=== PATIENT | female | born 1975 | race Caucasian/White ===

== ENCOUNTER 2016-09-03 08:51 | Emergency (ER) | payer MEDICAID ==
[~2016-09-03] VITALS: Ht 152.4 cm; Wt 78.0 kg
[2016-09-03 08:53] VITALS: Ht 152.4 cm; Wt 78.0 kg
[2016-09-03] MEDS ORDERED: TETRACAINE 0.5% 4 ML OPH LEFT EYE SCH (10:00)
[2016-09-03] MEDS ORDERED: FLUORESCEIN STRIP LEFT EYE ONE (10:00)
[2016-09-03] MEDS ORDERED: ACYCLOVIR 800 MG TAB PO ONE (11:30)
[2016-09-03 11:55] VITALS: BP 136/78; PULSE 70; RESP 18; TEMP 98.3
[2016-09-03] MEDS ORDERED: HYDR-906 PO (12:36)
[2016-09-03] MEDS ORDERED: ACYC800T57 PO (12:36)
--- NOTE | 2016-09-03 16:02 | ERD ---
ER Documentation Chief Complaint Date/Time DATE: 09/03/16 TIME: 15:56 Chief Complaint left eyebrow blister pain HPI 41-year-old female patient with no significant past medical history presents to the ED complaining of a rash noted on her left eyebrow region started 4 days ago. Reports that she has pain surrounding the left eye but denies any diplopia , blurred vision, vision loss. Denies any eye pain. Reports that it feels like a burning sensation. States that she wears glasses but denies wearing any contacts. Denies any headache, weakness, numbness or tingling, nausea, vomiting , fever, chills, chest pain, shortness of breath. No foreign body. No eye trauma. ROS All systems reviewed and are negative except as per history of present illness. Medications Home Meds Active Scripts Acyclovir* (Zovirax*) 800 Mg Tablet, 800 MG PO 5 TIMES DAILY for 7 Days, TAB Prov:ROSEANNE ALTAMIRANO PA-C 09/03/16 Hydrocodone/Acetaminophen (Mohnton 5-325 Tablet) 1 Each Tablet, 1 TAB PO Q6H Y for PAIN, #14 TAB Prov:ROSEANNE ALTAMIRANO PA-C 09/03/16 Allergies Allergies: Coded Allergies: No Known Allergy (Verified , 03/18/08) PMhx/Soc History of Surgery: Yes (Cholecystectomy) Anesthesia Reaction: No Hx Neurological Disorder: No Hx Respiratory Disorders: No Hx Cardiac Disorders: No Hx Psychiatric Problems: No Hx Miscellaneous Medical Probl: No Hx Alcohol Use: No Hx Substance Use: No Hx Tobacco Use: No Smoking Status: Never smoker Physical Exam Vitals Vital Signs Date Time Temp Pulse Resp B/P Pulse Ox O2 Delivery O2 Flow Rate FiO2 09/03/16 11:55 98.3 70 18 136/78 99 Room Air 09/03/16 08:53 98.1 80 20 140/75 99 Physical Exam Const: [id number], well-nourished. In no acute distress. Head: Atraumatic, normocephalic Eyes: Normal Conjunctiva without injection. No purulent discharge. PERRLA. EOMI. See MDM for more eye exam. ENT: Normal external ear. Ear canal without erythema. Tympanic membrane pearly chaudhry without effusion or bulging. Nasal canal clear with normal turbinates. Moist oropharynx without tonsillar exudates. Non-erythematous pharynx. Uvula midline. No drooling. No trismus. Neck: No cervical midline tenderness. Full range of motion. No meningismus. No cervical lymphadenopathy. No JVD. Resp: Clear to auscultation bilaterally. No wheezing, rhonchi, rales, or crackles. No accessory muscle use. No retractions. Cardio: Regular rate and rhythm. No murmurs, rubs or gallops. Skin: Normal skin turgor. No petechiae or purpura. Grouped vesicular lesions noted on the lateral aspect of patient's left eyebrow with slight surrounding erythema. No fluctuance or induration. No bleeding noted. Ext: No cyanosis, or edema. Distal pulses intact bilaterally. Neur: Awake and alert. Normal gait. Normal coordination. Cranial Nerves II- VII intact. Normal finger to nose. Muscle strength 5/5. Sensation intact. Psych: Normal Mood and Affect Results 24 hrs Current Medications Medications (Trade) Dose Ordered Sig/Tyler Route PRN Reason Start Time Stop Time Status Last Admin Dose Admin Tetracaine HCl (Tetracaine 0.5% Steri-Unit Araseli) 1 drop ONCE LEFT EYE 09/03/16 10:00 09/03/16 13:21 DC Fluorescein Sodium (Ugmia-D-Lxvkl) 1 strip ONCE ONCE LEFT EYE 09/03/16 10:00 09/03/16 10:01 DC Acyclovir (Zovirax) 800 mg ONCE ONCE PO 09/03/16 11:30 09/03/16 11:31 DC 09/03/16 11:49 Procedures/MDM 41-year-old female patient with no significant past medical history presents to the ED complaining of a rash noted on left eyebrow region. Patient is afebrile nontoxic appearing. Patient has normal vital signs. Patient gave consent to do an eye exam with fluorescein stain and tetracaine. Eye Exam w/ Wood's lamp: Visual Acuity: Right 20/20 Left 20/25 Visual Moss: Intact in all four quadrants bilaterally Lac ducts/glands: No swelling Lids w/ evertion: Normal, no foreign body Conj/Earlimart: Clear, negative Good's, slight punctate fluorescein uptake of left eye at 4 o clock region while using a ophthalmoscope with cobalt blue UV light. Patient likely has herpes shingles rash of left eyebrow. Patient was given her first dose of acyclovir here in the ED. Patient does not have any eye pain, conjunctivitis. There are 2 punctate fluorescein uptake lesions of the left eye at the 4:00 region. There is low suspicion for herpes ophthalmicus. There was no Slit-lamp or [place] lamp available here in the ED as it is being fixed in Biomed here at [facility] therefore exam was done with ophthalmoscope with cobalt blue UV lighting however patient was strictly instructed to follow up with an fire management specialist within 24 hours tomorrow at [facility] for further evaluation and treatment of the punctate lesions. No Araujo's sign. Low suspicion for Velasquez Foster Syndrome, ruptured globe, retinal detachment, periorbital cellulitis, acute angle closure glaucoma, deep space infection, iritis, traumatic hyphema, conjunctivitis, subconjunctival hemorrhage, corneal abrasion, corneal ulcer, pterygium, hypopyon, blepharitis, hordeolum, chalazion, or other emergent conditions. This case was discussed with my supervising physician, Dr. Trivedi who agreed with the management and discharge plan. Discharge medications: Acyclovir, Mohn[place] Strictly instructed patient to follow up with an fire management specialist within 24 hours. Instructed patient to return to the ED for any worsening symptoms. Patient is hemodynamically stable. Patient's questions were answered. Patient understood and agreed with discharge plan. Departure Diagnosis: Primary Impression: Shingles rash Herpes zoster complications: without complications Qualified Code: B02.9 - Herpes zoster without complication Condition: Stable Patient Instructions: Shingles (Herpes Zoster) Referrals: [facility] YOU HAVE RECEIVED A MEDICAL SCREENING EXAM AND THE RESULTS INDICATE THAT YOU DO NOT HAVE A CONDITION THAT REQUIRES URGENT TREATMENT IN THE EMERGENCY DEPARTMENT. FURTHER EVALUATION AND TREATMENT OF YOUR CONDITION CAN WAIT UNTIL YOU ARE SEEN IN YOUR DOCTORS OFFICE WITHIN THE NEXT 1-2 DAYS. IT IS YOUR RESPONSIBILITY TO MAKE AN APPOINTMENT FOR FOLOW-UP CARE. IF YOU HAVE A PRIMARY DOCTOR --you should call your primary doctor and schedule an appointment IF YOU DO NOT HAVE A PRIMARY DOCTOR YOU CAN CALL OUR PHYSICIAN REFERRAL HOTLINE AT IF YOU CAN NOT AFFORD TO SEE A PHYSICIAN YOU CAN CHOSE FROM THE FOLLOWING [facility] CLINICS [facility] [address] [facility]. [facility] [address] [facility] [facility] [address] [facility] [address] [facility] [facility] [address] [facility]. [facility]. [address] [facility]. [facility] YOU HAVE RECEIVED A MEDICAL SCREENING EXAM AND THE RESULTS INDICATE THAT YOU DO NOT HAVE A CONDITION THAT REQUIRES URGENT TREATMENT IN THE EMERGENCY DEPARTMENT. FURTHER EVALUATION AND TREATMENT OF YOUR CONDITION CAN WAIT UNTIL YOU ARE SEEN IN YOUR DOCTORS OFFICE WITHIN THE NEXT 1-2 DAYS. IT IS YOUR RESPONSIBILITY TO MAKE AN APPOINTMENT FOR FOLOW-UP CARE. IF YOU HAVE A PRIMARY DOCTOR --you should call your primary doctor and schedule and appointment IF YOU DO NOT HAVE A PRIMARY DOCTOR YOU CAN CALL OUR PHYSICIAN REFERRAL HOTLINE AT . IF YOU CAN NOT AFFORD TO SEE A PHYSICIAN YOU CAN CHOSE FROM THE FOLLOWING [facility] INSTITUTIONS: [facility] [address] [place] [address] [facility] [address] [place] [address] [facility] [address] [place] [address] [facility] Hours: Mon - Fri 9:00 AM - 5:00 PM Additional Instructions: Es muy importante para usted bonita seguimiento con un oftalmlogo dentro de 24 horas en el centro de ojos owusu. Si no puede obtener nika sneha o acuda a un mdico all, obtener ms evaluacin en el [facility] vonda yo siguiente opcin porque hay un oftalmlogo. Seguimiento con el [facility] inmediatamente si tienes empeoramiento de dolor ocular, prdida de la visin, visin borrosa, visin doble, la fiebre ya que tienen un oftalmlogo que evaluarte. La medicina que se le recet puede causarle sueo.NO DEBE MANEJAR NI OPERAR MAQUINARIAS PELIGROSAS mientras esta tomando esta medicina! ROSEANNE ALTAMIRANO PA-C Sep 03, 2016 16:02
== END 2016-09-03 11:55 | disposition home or self-care (01) ==
LOC: FTE 08:51
DX: B02.9 Zoster without complications (principal)
CPT/HCPCS: Z7502; Z7610; 99284